=== PATIENT | female | born 1975 | race American Indian/Alaskan Native ===

== ENCOUNTER 2020-06-07 15:49 | Outpatient (CLI) | payer OTHER ==
--- NOTE | 2020-06-07 17:48 | Mammography Report ---
DIGITAL SCREENING MAMMOGRAM WITH CAD, 06/07/2020 CLINICAL INFORMATION / INDICATION: Routine screening mammography. TECHNIQUE: Digital bilateral 2D mammography was obtained in the craniocaudal and mediolateral obliqu e projections. This examination was interpreted with the benefit of Computer-Aided Detection analysis . COMPARISON: None available. Patient is unclear as to where prior mammogram has been performed. FINDINGS: Breast Density: The breasts are heterogeneously dense, which may obscure small masses. No dominant mass, suspicious calcifications, or architectural distortion in the left breast. In the inferior right breast on MLO view only, there is suggestion of oval 2.6 cm focal asymmetry in the posterior depth. This will need further evaluated with spot compression imaging and possibly righ t breast ultrasound. IMPRESSION: Right breast focal asymmetry noted in the inferior posterior breast on MLO view only. Rec ommend spot compression views and possible right breast ultrasound. We would be happy to issue an add endum if prior mammograms can be located. Follow up recommendation: Special View: Spot BI-RADS Category 0: Incomplete. Needs additional imaging evaluation and/or prior mammograms for loki francis. A "normal" or negative report should not discourage follow up or biopsy of a clinically significant f inding. A written summary of these findings will be mailed to the patient. The patient will be entered into a mammography reporting system which will generate a reminder letter for the patient's next appointmen t at the appropriate interval. The [employer] recommends yearly mammograms starting at age 40 and continuing as l vasyl as a woman is in good health. Breast MRI is recommended for women with an approximate 20-25% or greater lifetime risk of breast cancer, including women with a strong family history of breast or ova ida cancer or who have been treated for Hodgkin's disease. Signer Name: Jessie Caballero MD Signed: 06/07/2020 5:44 PM Workstation Name: [email or web address]
== END 2020-06-07 15:50 | disposition home or self-care (01) ==
LOC: SPVWC 15:49
PROVIDERS: ATTEND Obstetrics & Gynecology
DX: Z12.31 Encounter for screening mammogram for malignant neoplasm of breast (principal); N64.89 Other specified disorders of breast
CPT/HCPCS: 77067

== ENCOUNTER 2020-09-06 12:57 | Outpatient (CLI) | payer OTHER ==
--- NOTE | 2020-09-06 13:46 | Mammography Report ---
DIGITAL DIAGNOSTIC MAMMOGRAM WITH CAD CONVENTIONAL, 09/06/2020 CLINICAL INFORMATION / INDICATION: ABNORMAL MAMMO R92.8 TECHNIQUE: Digital right mammographic imaging was performed. Spot compression views were obtained. This examination was interpreted with the benefit of Computer-aided Detection analysis. COMPARISON: 08/05/2020 FINDINGS: Breast Density: The breasts are heterogeneously dense, which may obscure small masses. Density seen on the right MLO view on screening mammogram resolves with spot compression views and on the true lateral view. IMPRESSION: No mammographic evidence of malignancy. Follow up recommendation: Routine yearly BI-RADS Category 2: Benign. A "normal" or negative report should not discourage follow up or biopsy of a clinically significant f inding. A written summary of these findings will be mailed to the patient. The patient will be entered into a mammography reporting system which will generate a reminder letter for the patient's next appointmen t at the appropriate interval. According to the [employer], yearly mammograms are recommended starting at age 40 and continuing as long as a woman is in good health. Breast MRI is recommended for women with an ju roximately 20-25% or greater lifetime risk of breast cancer, including women with a strong family his tory of breast or ovarian cancer and women who have been treated for Hodgkin's disease. Signer Name: Rafa Armendariz MD Signed: 09/06/2020 1:41 PM Workstation Name: [email or web address]
== END 2020-09-06 12:58 | disposition home or self-care (01) ==
LOC: SPVWC 12:57
PROVIDERS: ATTEND Obstetrics & Gynecology
DX: R92.8 Other abnormal and inconclusive findings on diagnostic imaging of breast (principal); R92.2 Inconclusive mammogram